=== PATIENT | female | born 1940 | race Caucasian/White ===

== ENCOUNTER 2017-07-09 19:48 | Emergency (ER) | payer OTHER ==
[~2017-07-09] VITALS: Ht 154.9 cm; Wt 81.6 kg
[2017-07-09 22:18] VITALS: BP 159/79
== END 2017-07-09 22:19 | disposition home or self-care (01) ==
LOC: ED 19:48
DX: S62.317A Displaced fracture of base of fifth metacarpal bone, left hand, initial encounter for closed fracture (principal); S00.83XA Contusion of other part of head, initial encounter; I10 Essential (primary) hypertension; E11.9 Type 2 diabetes mellitus without complications; E78.00 Pure hypercholesterolemia, unspecified; Z90.89 Acquired absence of other organs; W01.0XXA Fall on same level from slipping, tripping and stumbling without subsequent striking against object, initial encounter; Y93.89 Activity, other specified; Y92.89 Other specified places as the place of occurrence of the external cause; Y99.8 Other external cause status
CPT/HCPCS: Q0092

== ENCOUNTER 2018-12-02 16:58 | Emergency (ER) | payer OTHER ==
[~2018-12-02] VITALS: Ht 154.9 cm; Wt 78.1 kg
[2018-12-02 17:46] VITALS: BP 132/58; Ht 154.9 cm; Wt 78.1 kg
== END 2018-12-02 18:36 | disposition home or self-care (01) ==
LOC: ED 16:58
DX: K12.1 Other forms of stomatitis (principal); I10 Essential (primary) hypertension; E11.9 Type 2 diabetes mellitus without complications; E78.00 Pure hypercholesterolemia, unspecified